=== PATIENT | female | born 1985 | race Asian ===

== ENCOUNTER → 2021-11-05 | Outpatient (CLI) | payer OTHER ==
[~2021-11-05] MED LIST: NOCURR
[2021-11-06 06:06] LABS: RUBEOLA (MEASLES) IGG >300.0 AU/mL (Immune >16.4)
[2021-11-07 04:06] LABS: RUBELLA AB IGG-REFLAB 6.67 index (Immune >0.99)
== END | disposition home or self-care (01) ==
LOC: LABMN 10:32
PROVIDERS: ATTEND Internal Medicine
DX: Z02.1 Encounter for pre-employment examination (principal)
CPT/HCPCS: 86706; 86735; 86762; 86765; 86787